=== PATIENT | male | born 1950 | race Caucasian/White ===

== ENCOUNTER 2023-05-04 05:40 | Day surgery (SDC) | payer OTHER ==
[2023-04-30 15:15] LABS: BASOPHILS % (AUTO) 0.4 % (0-1); EOSINOPHILS % (AUTO) 0.8 % (0-6); HEMATOCRIT 41.7 % (42.0-52.0); HEMOGLOBIN 13.9 g/dl (14.0-17.9); LYMPHOCYTES # (AUTO) 1.7 X10'3 (1.1-4.8); LYMPHOCYTES % (AUTO) 25.3 % (21-51); MEAN CORPUSCULAR HEMOGLOBIN 30.8 PG (27.0-31.0); MEAN CORPUSCULAR HGB CONC 33.4 g/dL (33.0-36.5); MEAN CORPUSCULAR VOLUME 92.2 FL (78-98); MEAN PLATELET VOLUME 9.6 FL (7.4-10.4); MONOCYTES # (AUTO) 0.5 X10'3 (0-0.9); MONOCYTES % (AUTO) 7.9 % (2-12); NEUTROPHILS # (AUTO) 4.3 X10'3 (1.8-7.7); NEUTROPHILS % (AUTO) 65.6 % (42-75); PLATELET COUNT 200 X10'3 (140-440); RED BLOOD COUNT 4.52 X10'6 (4.70-6.10); RED CELL DISTRIBUTION WIDTH 14.3 % (11.5-14.5); WHITE BLOOD COUNT 6.6 X10'3 (4.5-11.0)
[2023-04-30 15:38] LABS: ALBUMIN 3.9 G/DL (3.4-5.0); ANION GAP 9 (8-16); BLOOD UREA NITROGEN 22 MG/DL (7-18); BUN/CREATININE RATIO 16.4 (10.0-20.0); CALCIUM 9.6 MG/DL (8.5-10.1); CHLORIDE 101 MMOL/L (99-107); CHOL/HDL RATIO 2.8 (0.00-4.99); CHOLESTEROL 146 MG/DL (0-200); CREATININE 1.34 MG/DL (0.60-1.10); GLUCOSE 141 MG/DL (70-104); HDL CHOLESTEROL 52 MG/DL (35-60); LDL CHOLESTEROL 79 MG/DL (50-100); POTASSIUM 4.5 MMOL/L (3.5-5.1); SODIUM 136 MMOL/L (135-145); TOTAL CARBON DIOXIDE 26.4 MMOL/L (24-32); TRIGLYCERIDES 81 MG/DL (20-135); eGFR 52 ML/MIN
[2023-04-30 15:48] LABS: APTT 29 SECONDS (22-32); INR 1.1 INR; PROTHROMBIN TIME 11.5 SECONDS (9.0-12.0)
[~2023-05-04] VITALS: Ht 180.3 cm; Wt 92.8 kg
[2023-05-04] VITALS (10 sets, daily range): BP systolic 90–116; BP diastolic 48–69; PULSE 59–73; RESP 12–18; TEMP 97.5; O2SAT 92–95
[~2023-05-04 05:40] MED LIST: ASPI81TA52 PO; CINN500C16 PO; CLOP75TA34 PO; HYDR-4353 PO; IBUP-1984 PO; IPRA3AMP9 IH; LISI1TAB51 PO; MAGN400C PO; METF500T PO; MULT-1085 PO; PIOG30TA10 PO; SIMV-42 PO
[2023-05-04] MEDS ORDERED: LORazepam 0.5 MG tablet PO PRN (06:15)
[2023-05-04] MEDS ORDERED: normal saline 1,000 ML IV SCH (06:15)
[2023-05-04] MEDS ORDERED: diphenhydrAMINE 25mg capsule PO PRN (06:15)
[2023-05-04] MEDS ORDERED: PER5325T PO (07:00)
[2023-05-04] MEDS ORDERED: METO50TA7 PO (07:00)
[2023-05-04] MEDS ORDERED: TIOT4MIS3 INH (07:00)
[2023-05-04] MEDS ORDERED: SACU1TAB PO (07:00)
[2023-05-04] MEDS ORDERED: SERT50TA PO (07:00)
[2023-05-04] MEDS ORDERED: SPIR25TA5 PO (07:00)
[2023-05-04] MEDS ORDERED: MAGN400C PO (07:00)
[2023-05-04] MEDS ORDERED: CETI10TA14 PO (07:00)
[2023-05-04] MEDS ORDERED: EMPA10TA PO (07:00)
[2023-05-04] MEDS ORDERED: GABA300C PO (07:00)
[2023-05-04] MEDS ORDERED: ALBU18HF2 INH (07:00)
[2023-05-04] MEDS ORDERED: ROSU20TA2 PO (07:00)
[2023-05-04] MEDS ORDERED: MONT-40 PO (07:00)
[2023-05-04] MEDS ORDERED: fentaNYL/PF 50MCG/1 ML 2ML syringe ONE (07:54)
[2023-05-04] MEDS ORDERED: verapamil 2.5 mg/ml inj IV ONE (07:54)
[2023-05-04] MEDS ORDERED: heparin 1,000unit/ml 10ml vial 10 ML ONE (07:54)
[2023-05-04] MEDS ORDERED: midazolam 1 mg/ML 2ml injection ONE (07:54)
[2023-05-04] MEDS ORDERED: LIDOcaine 1% (10mg/ml) 2ml vial ONE (07:54)
[2023-05-04] MEDS ORDERED: nitroGLYCERIN 500mcg/5mL D5W 5 ML IV ONE (07:55)
[2023-05-04] MEDS ORDERED: iohexol 350MG/ML 100ml bottle IV ONE ×2 (07:55→09:02)
[2023-05-04] MEDS ORDERED: aspirin 325mg tablet ONE (08:57)
[2023-05-04] MEDS ORDERED: ticagrelor 90mg tablet ONE (08:57)
[2023-05-04] MEDS ORDERED: proCHLORperazine 10 MG/2 ml inj IV PRN (09:45)
[2023-05-04] MEDS ORDERED: nitroGLYCERIN 0.4mg SUBLingual tab SL PRN (09:45)
[2023-05-04] MEDS ORDERED: ondansetron/PF 4mg/2ml inj IV PRN (09:45)
[2023-05-04] MEDS ORDERED: OXAZEpam 15mg capsule PO PRN (09:45)
[2023-05-04] MEDS ORDERED: HYDROcodone/acetaminophen 10/325mg tab PO PRN (09:45)
[2023-05-04] MEDS ORDERED: HYDROcodone/acetaminophen 5mg/325mg tablet PO PRN (09:45)
== END 2023-05-04 13:20 | disposition home or self-care (01) ==
LOC: SSTAY O 05:40
PROVIDERS: ATTEND Internal Medicine Interventional Cardiology
DX: I25.110 Atherosclerotic heart disease of native coronary artery with unstable angina pectoris (principal); I50.30 Unspecified diastolic (congestive) heart failure; I25.2 Old myocardial infarction; I42.9 Cardiomyopathy, unspecified; I11.0 Hypertensive heart disease with heart failure; Z79.899 Other long term (current) drug therapy; Z98.890 Other specified postprocedural states
CPT/HCPCS: 36415; 80048; 80061; 82948; 85025; 85610; 85730; 93005; 93454; 99152; 99153; C1874; C9600; J1644; J2250; J3010; J3490; J7030; Q0163; Q9967; A4620; A6258; A6402; C1725; C1751; C1894; C9603